=== PATIENT | female | born 1985 | race Two or more races ===

== ENCOUNTER 2022-10-03 14:00 | Outpatient (REF) | payer OTHER, SELFPAY ==
--- NOTE | ~2022-10-03 | XR_ITS ---
EXAMINATION: XR FOOT BILATERAL XR ANKLE BILATERAL XR LEFT KNEE XR RIGHT HAND XR WRIST CLINICAL INFORMATION: Rheumatoid arthritis. COMPARISON: None TECHNIQUE: 3 views each foot, 2 views each ankle, 4 views right hand/wrist and 3 views left knee. FINDINGS: Left knee: The tricompartment joint space is maintained normal. On sunrise view of the patella it is mildly subluxed laterally. No bony erosive changes or loose body seen. No abnormal suprapatellar joint effusion. Left foot: The PIP and MTP joint spaces are maintained normal. The intertarsal, ankle mortise and subtalar joint is normal. Small retrocalcaneal enthesophyte is seen. The soft tissues are normal. Right foot: The ankle mortise and subtalar joints are normal. There is a retrocalcaneal small enthesophyte. The PIP, MTP and intertarsal joint spaces are maintained normal. No bony erosive changes, no osteopenia. Right ankle: The ankle mortise and subtalar joints are normal. No bony erosive changes. No loose bodies. The soft tissues are normal. Left ankle: The ankle mortise and subtalar joints are normal. No visible acute fracture or dislocation seen. There is small bony fragment along the lateral talus, likely old avulsion injury. Right hand/wrist. The intercarpal, carpometacarpal, PIP and DIP joint spaces are normal. No bony erosive changes or spurring. The soft tissues are normal. XR/XR hand wrist RT IMPRESSION: Mild lateral subluxation of the patella on sunrise view left knee. No acute fracture or dislocation. Unremarkable bilateral foot, right ankle and right hand exam. Small retrocalcaneal enthesophyte left foot and small bony fragment along the lateral talus, likely old avulsion injury. No acute fracture or dislocation seen in either foot or ankle.
--- NOTE | ~2022-10-03 | XR_ITS ---
EXAMINATION: XR HAND, LEFT CLINICAL INFORMATION: Rheumatoid arthritis. COMPARISON: None TECHNIQUE: 4 views of the left hand and wrist. FINDINGS: There is no evidence of acute fracture or dislocation of the left hand. Joint spaces are maintained. No periarticular osteopenia is present. There is a small lucent region seen about the distal aspect of the navicular which may represent a small erosion. No other findings to suggest erosions evident. XR/XR hand wrist LT IMPRESSION: Question small erosion distal scaphoid. Otherwise no significant bony abnormalities identified.
--- NOTE | ~2022-10-03 | XR_ITS ---
EXAMINATION: XR KNEE AP STANDING CLINICAL INFORMATION: Rheumatoid arthritis. COMPARISON: None TECHNIQUE: AP bilateral standing view of the knees was obtained. FINDINGS: There is no evidence of acute fracture or dislocation of the right or left knees on the AP view. Medial and lateral joint space compartments are maintained. There is a small bony density seen adjacent to the right medial femoral condyle which may be sequela of previous medial collateral ligament injury. XR/XR knee standing BI IMPRESSION: No significant abnormality of the knees on the AP view.
--- NOTE | ~2022-10-03 | XR_ITS ---
EXAMINATION: XR KNEE, RIGHT CLINICAL INFORMATION: Rheumatoid arthritis. COMPARISON: None TECHNIQUE: Three views of the right knee. FINDINGS: There is no evidence of acute fracture or dislocation of the right knee. No right knee effusion. Right knee joint spaces are maintained. No erosive changes are evident. Small bony density adjacent to the medial distal femoral condyle is identified and may represent sequela of previous medial lateral collateral ligament injury. XR/XR knee RT 3V IMPRESSION: No significant right knee abnormality identified. No erosive change.
--- NOTE | ~2022-10-03 | XR_ITS ---
EXAMINATION: XR FOOT BILATERAL XR ANKLE BILATERAL XR LEFT KNEE XR RIGHT HAND XR WRIST CLINICAL INFORMATION: Rheumatoid arthritis. COMPARISON: None TECHNIQUE: 3 views each foot, 2 views each ankle, 4 views right hand/wrist and 3 views left knee. FINDINGS: Left knee: The tricompartment joint space is maintained normal. On sunrise view of the patella it is mildly subluxed laterally. No bony erosive changes or loose body seen. No abnormal suprapatellar joint effusion. Left foot: The PIP and MTP joint spaces are maintained normal. The intertarsal, ankle mortise and subtalar joint is normal. Small retrocalcaneal enthesophyte is seen. The soft tissues are normal. Right foot: The ankle mortise and subtalar joints are normal. There is a retrocalcaneal small enthesophyte. The PIP, MTP and intertarsal joint spaces are maintained normal. No bony erosive changes, no osteopenia. Right ankle: The ankle mortise and subtalar joints are normal. No bony erosive changes. No loose bodies. The soft tissues are normal. Left ankle: The ankle mortise and subtalar joints are normal. No visible acute fracture or dislocation seen. There is small bony fragment along the lateral talus, likely old avulsion injury. Right hand/wrist. The intercarpal, carpometacarpal, PIP and DIP joint spaces are normal. No bony erosive changes or spurring. The soft tissues are normal. XR/XR knee LT 3V IMPRESSION: Mild lateral subluxation of the patella on sunrise view left knee. No acute fracture or dislocation. Unremarkable bilateral foot, right ankle and right hand exam. Small retrocalcaneal enthesophyte left foot and small bony fragment along the lateral talus, likely old avulsion injury. No acute fracture or dislocation seen in either foot or ankle.
--- NOTE | ~2022-10-03 | XR_ITS ---
EXAMINATION: XR FOOT BILATERAL XR ANKLE BILATERAL XR LEFT KNEE XR RIGHT HAND XR WRIST CLINICAL INFORMATION: Rheumatoid arthritis. COMPARISON: None TECHNIQUE: 3 views each foot, 2 views each ankle, 4 views right hand/wrist and 3 views left knee. FINDINGS: Left knee: The tricompartment joint space is maintained normal. On sunrise view of the patella it is mildly subluxed laterally. No bony erosive changes or loose body seen. No abnormal suprapatellar joint effusion. Left foot: The PIP and MTP joint spaces are maintained normal. The intertarsal, ankle mortise and subtalar joint is normal. Small retrocalcaneal enthesophyte is seen. The soft tissues are normal. Right foot: The ankle mortise and subtalar joints are normal. There is a retrocalcaneal small enthesophyte. The PIP, MTP and intertarsal joint spaces are maintained normal. No bony erosive changes, no osteopenia. Right ankle: The ankle mortise and subtalar joints are normal. No bony erosive changes. No loose bodies. The soft tissues are normal. Left ankle: The ankle mortise and subtalar joints are normal. No visible acute fracture or dislocation seen. There is small bony fragment along the lateral talus, likely old avulsion injury. Right hand/wrist. The intercarpal, carpometacarpal, PIP and DIP joint spaces are normal. No bony erosive changes or spurring. The soft tissues are normal. XR/XR ankle RT min 3V IMPRESSION: Mild lateral subluxation of the patella on sunrise view left knee. No acute fracture or dislocation. Unremarkable bilateral foot, right ankle and right hand exam. Small retrocalcaneal enthesophyte left foot and small bony fragment along the lateral talus, likely old avulsion injury. No acute fracture or dislocation seen in either foot or ankle.
--- NOTE | ~2022-10-03 | XR_ITS ---
EXAMINATION: XR FOOT BILATERAL XR ANKLE BILATERAL XR LEFT KNEE XR RIGHT HAND XR WRIST CLINICAL INFORMATION: Rheumatoid arthritis. COMPARISON: None TECHNIQUE: 3 views each foot, 2 views each ankle, 4 views right hand/wrist and 3 views left knee. FINDINGS: Left knee: The tricompartment joint space is maintained normal. On sunrise view of the patella it is mildly subluxed laterally. No bony erosive changes or loose body seen. No abnormal suprapatellar joint effusion. Left foot: The PIP and MTP joint spaces are maintained normal. The intertarsal, ankle mortise and subtalar joint is normal. Small retrocalcaneal enthesophyte is seen. The soft tissues are normal. Right foot: The ankle mortise and subtalar joints are normal. There is a retrocalcaneal small enthesophyte. The PIP, MTP and intertarsal joint spaces are maintained normal. No bony erosive changes, no osteopenia. Right ankle: The ankle mortise and subtalar joints are normal. No bony erosive changes. No loose bodies. The soft tissues are normal. Left ankle: The ankle mortise and subtalar joints are normal. No visible acute fracture or dislocation seen. There is small bony fragment along the lateral talus, likely old avulsion injury. Right hand/wrist. The intercarpal, carpometacarpal, PIP and DIP joint spaces are normal. No bony erosive changes or spurring. The soft tissues are normal. XR/XR ankle LT min 3V IMPRESSION: Mild lateral subluxation of the patella on sunrise view left knee. No acute fracture or dislocation. Unremarkable bilateral foot, right ankle and right hand exam. Small retrocalcaneal enthesophyte left foot and small bony fragment along the lateral talus, likely old avulsion injury. No acute fracture or dislocation seen in either foot or ankle.
[2022-10-03 16:01] LABS: MANUAL DIFF FLAG NO
[2022-10-03 16:22] LABS: Basophils Percent Auto 0.5 % (0-2); Eosinophils Absolute Auto 0.1 X10*3/uL (0.0-0.4); Hematocrit 36.2 % (37.0-47.0); Hemoglobin 12.2 g/dl (12.0-16.0); Imm Gran Abs Auto 0.01 X10*3/uL (0.00-0.03); Imm Gran Pct Auto 0.2 % (0.0-0.4); Lymphocytes Absolute Auto 1.3 X10*3/uL (1.2-4.9); Lymphocytes Percent Auto 20.8 % (20-40); Mean Corpuscular HGB Conc 33.7 g/dl (31.0-35.0); Mean Corpuscular Hemoglobin 29.8 pg (27.0-33.0); Mean Corpuscular Volume 88.3 fL (80.0-98.0); Mean Platelet Volume 9.5 fL (9.4-12.3); Monocytes Absolute Auto 0.9 X10*3/uL (0.1-1.2); Monocytes Percent Auto 13.9 % (2-11); Neutrophils Absolute Auto 3.9 x10*3/uL (2.0-8.3); Neutrophils Percent Auto 63.6 % (45-73); Platelet Count 345 X10*3/uL (160-400); Red Cell Distribution Width 12.8 % (11.0-16.0); White Blood Count 6.1 X10*3/uL (4.8-10.8)
[2022-10-03 16:22] LABS: Appearance Urine Clear; Color Urine Yellow; Glucose Urine UA Negative (Negative); Leukocyte Esterase Urine Negative (Negative); Nitrite Urine Negative (Negative); PH 6.5 (5.0-9.0); Urine Blood Negative (Negative); Urine Ketones Negative (Negative); Urine Protein Negative (Neg-Trace)
[2022-10-03 16:24] LABS: Bacteria Urine None Seen (None Seen); Hyaline Casts Urine 0-2 /LPF (0-2); RBC Urine 0-2 /HPF (0-2); Squamous Epithelial Cell Urine 0-2 /HPF (0-2); WBC Urine 0-5 /HPF (0-5)
[2022-10-03 16:42] LABS: Estimated Average Glucose 100 mg/dL; Hemoglobin A1c % 5.1 %
[2022-10-03 16:48] LABS: Creatinine Urine 89.66 mg/dL; Total Protein Urine Random < 7 mg/dL (<12)
[2022-10-03 17:04] LABS: Erythrocyte Sedimentation Rate 18 MM/HR (0-20)
[2022-10-03 17:19] LABS: Alanine Aminotransferase 54 U/L (0-31); Albumin Level 4.3 g/dL (3.5-5.0); Alkaline Phosphatase 89 U/L (39-117); Anion Gap 11 (12-20); Aspartate Amino Transferase 33 U/L (5-31); Bilirubin Total 0.2 mg/dL (0.0-1.0); Blood Urea Nitrogen 11 mg/dL (9-16); C Reactive Protein 1.87 mg/dL (< or = 0.50); Calcium 9.2 mg/dL (8.4-10.2); Carbon Dioxide 25 mmol/L (22-29); Chloride 106 mmol/L (96-108); Estimated Glomerular Filt Rate > 60; Glucose Random 83 mg/dL (60-115); Potassium 4.1 mmol/L (3.3-5.1); Rheumatoid Factor < 13.0 IU/mL (<15.0); Sodium 138 mmol/L (135-145); Total Protein 7.6 g/dL (6.5-8.0)
[2022-10-04 12:10] LABS: HBc Num1 0.12 S/CO (0.00-0.79); HBsAGNum1 0.29 S/CO (0.00-0.99); Hepatitis A Antibody IgM 0.14 Index (0-0.79); Hepatitis B Core Antibody Nonreactive (Nonreactive); Hepatitis B Surface Antigen Negative (Negative); ~HepC Num1 0.12 S/CO (0.00-0.79); ~Hepatitis A Antibody IgM Nonreactive (Nonreactive); ~Hepatitis C Antibody Nonreactive (Nonreactive)
[2022-10-04 13:15] LABS: HBS Num1 19.26 mIU/mL (0-7.99); ~Hepatitis B Surface Antibody REACTIVE (Nonreactive)
[2022-10-04 20:59] LABS: Complement C3 163 mg/dL (83-193)
[2022-10-05 21:44] LABS: Prot Elec - Albumin 4.2 g/dL (3.8-4.8); Prot Elec - Alpha1 0.4 g/dL (0.2-0.3); Prot Elec - Alpha2 0.7 g/dL (0.5-0.9); Prot Elec - Beta 1 0.5 g/dL (0.4-0.6); Prot Elec - Beta 2 0.4 g/dL (0.2-0.5); Prot Elec - Gamma 1.5 g/dL (0.8-1.7); Prot Elec - Total Protein 7.6 g/dL (6.1-8.1)
[2022-10-06 10:43] LABS: IgA 264 mg/dL (47-310); IgG 1608 mg/dL (600-1640); IgM 187 mg/dL (50-300)
[2022-10-06 12:43] LABS: Cyclic Citrullinated Peptide <16 UNITS
[2022-10-06 15:18] LABS: Antibody to SS-A Antigen <1.0 NEG AI (<1.0 NEG); Antibody to SS-B Antigen <1.0 NEG AI (<1.0 NEG); SM/Ribonucleoprotein Ab <1.0 NEG AI (<1.0 NEG); Smith Protein <1.0 NEG AI (<1.0 NEG)
[2022-10-10 11:16] LABS: TSpotTB Invalid (Negative)
[2022-10-10 13:38] LABS: Centromere Protein A Ab <11 SI (<11); Centromere Protein B Ab <11 SI (<11); Fibrillarin Ab <11 SI (<11); PM SCL 100 Ab <11 SI (<11); PM SCL 75 Ab <11 SI (<11); RNA Polymerase III RP11 Ab <11 SI (<11); RNA Polymerase III RP155 Ab <11 SI (<11); SCL-70 Extractable Nuclear Ab <11 SI (<11); Th-To Ab <11 SI (<11); U1 SNRNP RNP 70KD <11 SI (<11); U1 SNRNP RNP A <11 SI (<11); U1 SNRNP RNP C <11 SI (<11)
== END 2022-10-03 14:01 | disposition home or self-care (01) ==
LOC: HO.XRAY 14:00
PROVIDERS: Visit Provider Student in an Organized Health Care Education/Training Program
DX: I73.00 Raynaud's syndrome without gangrene (principal); M06.9 Rheumatoid arthritis, unspecified; R76.8 Other specified abnormal immunological findings in serum; M25.541 Pain in joints of right hand; R53.83 Other fatigue; Z11.59 Encounter for screening for other viral diseases; Z13.1 Encounter for screening for diabetes mellitus; Z11.7 Encounter for testing for latent tuberculosis infection
CPT/HCPCS: 36415; 73110; 73130; 73562; 73564; 73565; 73610; 73630; 80053; 81001; 82784; 83036; 84156; 84165; 84182; 84443; 85025; 85652; 86140; 86160; 86200; 86235; 86334; 86431; 86481; 86704; 86706; 86709; 86803; 87340; 99202

== ENCOUNTER → 2022-11-17 11:05 | Outpatient (BNVA) | payer OTHER, SELFPAY | PROVIDERS: Visit Provider Student in an Organized Health Care Education/Training Program | DX: M06.09 Rheumatoid arthritis without rheumatoid factor, multiple sites (principal); I73.00 Raynaud's syndrome without gangrene; M79.7 Fibromyalgia; D50.9 Iron deficiency anemia, unspecified; K21.9 Gastro-esophageal reflux disease without esophagitis; E66.01 Morbid (severe) obesity due to excess calories; Z68.41 Body mass index [BMI] 40.0-44.9, adult | CPT/HCPCS: 99212 ==